=== PATIENT | male | born 1955 | race Caucasian/White ===

== ENCOUNTER → 2016-09-11 | Outpatient (CLI) | payer MEDICARE, OTHER ==
[2016-09-11 10:35] LABS: Non-African American GFR(MDRD) >60 (>60 ml/min/1.73 sqM)
--- NOTE | 2016-09-11 12:46 | MR ---
EXAMINATION TYPE: MR brain wo/w con DATE OF EXAM: 09/11/2016 12:21 PM COMPARISON: 10/15/2014 HISTORY: Stroke CONTRAST: Patient received 15 mL intravenous MultiHance gadolinium contrast. Multiplanar and multispin-echo imaging of the brain was performed . Pre and post contrast enhanced i mages are obtained. The ventricles, basal cisterns and sulci overlying the cerebral convexities are moderately enlarged. There is evidence of moderate periventricular white matter ischemic demyelination. Remote deep white matter insults are also noted. No acute edema is seen on diffusion weighted imaging. There is no evidence for midline shift or mass effect. Acute intracranial hemorrhage or extra-axial collection is not evident. No enhancing lesions are seen. The paranasal sinuses and mastoid air cells are well-aerated. IMPRESSION: Age-related atrophic and chronic small vessel ischemic change. No acute intracranial process at this time. No enhancing lesions are seen.
== END | disposition home or self-care (01) ==
LOC: EEVIPCON 10:04 → RADMRIMAIN 10:04
PROVIDERS: ATTEND Psychiatry & Neurology Neurology
DX: G31.1 Senile degeneration of brain, not elsewhere classified (principal); I67.82 Cerebral ischemia
CPT/HCPCS: 82565; 70553; A9577

== ENCOUNTER → 2016-11-03 | Outpatient (CLI) | payer MEDICARE, OTHER ==
[2016-11-03 12:35] LABS: EKG EKG PERFORMED
[2016-11-03 13:12] LABS: Basophils % (A) 0 %; CH 31.3; CHCM 33.7; Eosinophils # (A) 0.1 k/uL (0-0.7); Eosinophils % (A) 3 %; HCT 32.3 % (39.0-53.0); HDW 2.67; HGB 10.8 gm/dL (13.0-17.5); Luc # (Auto) 0.12; Luc % (Auto) 3; Lymphocytes # (A) 1.6 k/uL (1.0-4.8); Lymphocytes % (A) 33 %; MCH 31.2 pg (25.0-35.0); MCHC 33.5 g/dL (31.0-37.0); MCV 93.2 fL (80.0-100.0); Mean Platelet Volume 7.3; Monocytes # (A) 0.3 k/uL (0-1.0); Monocytes % (A) 7 %; Neutrophils # (A) 2.7 k/uL (1.3-7.7); Neutrophils % (A) 55 %; RBC 3.47 m/uL (4.30-5.90); RDW 13.5 % (11.5-15.5); WBC 4.9 k/uL (3.8-10.6)
[2016-11-03 13:25] LABS: Anion Gap 11 mmol/L; Blood Urea Nitrogen 29 mg/dL (9-20); Calcium 9.3 mg/dL (8.4-10.2); Carbon Dioxide 35 mmol/L (22-30); Chloride 95 mmol/L (98-107); Glucose 84 mg/dL (74-99); Potassium 3.7 mmol/L (3.5-5.1); Sodium 141 mmol/L (137-145)
[2016-11-03 13:35] LABS: Non-African American GFR(MDRD) >60 (>60 ml/min/1.73 sqM)
== END ==
LOC: LABPAT 12:24
PROVIDERS: ATTEND Urology
DX: Z01.810 Encounter for preprocedural cardiovascular examination (principal); Z01.812 Encounter for preprocedural laboratory examination; N31.9 Neuromuscular dysfunction of bladder, unspecified; E11.9 Type 2 diabetes mellitus without complications; I10 Essential (primary) hypertension
CPT/HCPCS: 80048; 85025; 93005

== ENCOUNTER 2016-11-10 11:44 | Day surgery (SDC) | payer MEDICARE, OTHER ==
[2016-11-08 11:23] VITALS: BMI 18.3
[~2016-11-10 11:44] MED LIST: DEXAMETHASONE SOD PHOSPHATE 10 MG/ML 1 ML VIAL IV ONE; GENTAMICIN 120 MG in SODIUM CHLORIDE 0.9% 100 ML IVPB ONE; HYDROmorphone 1 MG/ML 1 ML SYRINGE IVP PRN; LACTATED RINGERS 1,000 ML IV SCH; MIDAZOLAM 2 MG/2 ML VIAL IV PRN; ONDANSETRON 4 MG/2 ML VIAL IVP ONE; SCOPOLAMINE 1.5MG/72HR PATCH TRANSDERM ONE; ceFAZolin 1,000 MG in DEXTROSE/WATER 1 50ML.BAG IV ONE
[2016-11-10 12:38] LABS: Glucose,Whole Blood 112 mg/dL (75-99)
[2016-11-10] MEDS ORDERED: LIDOCAINE 1% 20 ML VIAL (10MG/ML) FOR IV START INTRADERMA ONE (12:44)
[2016-11-10] MEDS ORDERED: SUCCINYLCHOLINE CHLORIDE 100 MG/5 ML SYR IV ONE (12:58)
[2016-11-10] MEDS ORDERED: ePHEDrine 50 MG/ML 1 ML AMP ONE (12:58)
[2016-11-10] MEDS ORDERED: PROPOFOL 10 MG/ML 20 ML VIAL IV ONE (12:58)
[2016-11-10] MEDS ORDERED: fentaNYL (PF) 50 MCG/ML 2 ML AMP ONE (12:58)
[2016-11-10] MEDS ORDERED: LIDOCAINE 1% INJ 10MG/ML (20 ML MDV) ONE (12:58)
--- NOTE | 2016-11-10 14:09 | P.OP ---
Date of Procedure: 11/10/16 Preoperative Diagnosis: Neurogenic bladder, urinary retention, hypospadias Postoperative Diagnosis: Same Procedure(s) Performed: Cystoscopy with insertion of suprapubic cystostomy tube Anesthesia: JUWAN Surgeon: Mikael Dawson Estimated Blood Loss (ml): 5 IV fluids (ml): 600 Pathology: none sent Condition: stable Disposition: PACU Indications for Procedure: The patient is a 61-year-old male with diabetes mellitus. He sustained a stroke in April 2014. He subsequently fell and sustained a hip fracture, which required surgical repair. He has been in urinary retention since that time, and failed a voiding trial. 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 The urinary retention has been managed with an indwelling Morin catheter, which is changed monthly. He has developed mild hypospadias, and I reviewed the options of a repeat voiding trial, repeat urodynamic testing, suprapubic cystostomy tube placement, and intermittent catheterization with the patient and his . They have elected to proceed with a suprapubic cystostomy tube. Operative Findings: No intravesical pathology identified. Description of Procedure: The patient was taken to the operating room and placed in the dorsolithotomy position, with his legs supported in Mario stirrups. The lower abdomen and external genitalia were prepped and draped sterilely. The 30 lens was used to introduce the 17-German start cystoscopic sheath through the urethra and into the bladder under direct vision. The urethral meatus showed evidence of subcoronal hypospadias. The remainder of the urethra appeared normal. Examination the prostate revealed mild bilobar enlargement. The bladder was examined in its entirety. The ureteral orifices appeared normal. There was evidence of catheter cystitis. The bladder capacity appeared greater than normal. No tumors or foreign bodies were seen. The bladder was filled and drained several times. The bladder was then filled, and the cystoscope removed. A [place] sound was then advanced into the bladder. The tip of the sound was placed anteriorly toward the anterior abdominal wall. The scalpel was used to make a midline skin incision 2 fingerbreadths above the symphysis pubis. The [place] sound was then passed through this incision. A silk suture was used to tie a 20-German Morin catheter to the tip of the [place] sound. The sound was then removed, pulling the Morin catheter through the urethra. The Morin catheter was then detached from the sound, and the catheter was slowly withdrawn as the cystoscope was slowly advanced adjacent to the catheter tip into the bladder. The Morin catheter balloon was inflated within the bladder, and the catheter was then secured to the anterior abdominal wall using a 2-0 silk suture. The catheter drained clear irrigant from the bladder, and the procedure was terminated. A drain sponge was placed around the catheter , which was then secured to the abdominal wall. The catheter was left to gravity drainage. All sponge and needle counts were correct. The patient tolerated the procedure well was taken to the recovery room in stable condition.
[2016-11-10 14:22] VITALS: TEMP 97.2
[2016-11-10 14:31] LABS: Glucose,Whole Blood 152 mg/dL (75-99)
[2016-11-10 14:53] VITALS: RESP 18
[2016-11-10 15:13] VITALS: BP 95/57; PULSE 80
== END 2016-11-10 15:39 | disposition home or self-care (01) ==
LOC: OR 11:44
PROVIDERS: ATTEND Urology
DX: N31.9 Neuromuscular dysfunction of bladder, unspecified (principal); E78.5 Hyperlipidemia, unspecified; E11.9 Type 2 diabetes mellitus without complications; E03.9 Hypothyroidism, unspecified; R33.9 Retention of urine, unspecified; Q54.1 Hypospadias, penile; I10 Essential (primary) hypertension; Z79.84 Long term (current) use of oral hypoglycemic drugs; Z79.02 Long term (current) use of antithrombotics/antiplatelets; Z79.4 Long term (current) use of insulin; Z79.899 Other long term (current) drug therapy; I25.2 Old myocardial infarction
CPT/HCPCS: 51040; J1100; J2405; J2001; J3010; J1580; J0690; J0330; J2704